=== PATIENT | female | born 1980 | race Caucasian/White ===

== ENCOUNTER 2024-09-10 10:47 | Outpatient (CLI) | payer BC, SELFPAY ==
[2024-09-10 12:27] LABS: Calculated LDL 129 mg/dL (<100); Cholesterol 224 mg/dL (<200); HDL Cholesterol 67 mg/dL (>or=50); TSH (W/Ref FT4) 0.88 uIU/mL (0.36-3.74); Triglyceride 144 mg/dL (<150); Vitamin B12 613 pg/mL (193-986)
== END 2024-09-10 10:48 | disposition home or self-care (01) ==
LOC: LBO 10:48
PROVIDERS: Visit Provider Family Medicine
DX: Z00.00 Encounter for general adult medical examination without abnormal findings (principal); F33.41 Major depressive disorder, recurrent, in partial remission
CPT/HCPCS: 36415; 80061; 82607; 84443